=== PATIENT | female | born 1960 | race Caucasian/White ===

== ENCOUNTER 2022-01-14 09:25 | Emergency (ER) | payer MEDICAID ==
[2022-01-14] MEDS ORDERED: Sodium Chloride 0.9% 500 ML IV ONE ×2 (10:16→11:59)
[2022-01-14] MEDS ORDERED: diphenhydrAMINE 50 MG/ML SDV IVPUSH ONE (10:45)
[2022-01-14] MEDS ORDERED: fentaNYL 100 MCG/2 ML SDV IVPUSH ONE ×2 (11:05→12:14)
[2022-01-14] MEDS ORDERED: Ondansetron 4 MG/2 ML SDV IVPUSH ONE (12:12)
[2022-01-14] MEDS ORDERED: HYDROmorphone 0.5 MG/0.5 ML Syringe IVPUSH ONE (13:04)
== END 2022-01-14 13:34 | disposition home or self-care (01) ==
LOC: JP.ED 09:25
DX: I95.9 Hypotension, unspecified (principal); G44.52 New daily persistent headache (NDPH); R00.1 Bradycardia, unspecified; D50.9 Iron deficiency anemia, unspecified; Z88.5 Allergy status to narcotic agent; Z88.8 Allergy status to other drugs, medicaments and biological substances; Z79.899 Other long term (current) drug therapy; Z98.84 Bariatric surgery status
CPT/HCPCS: 36415; 70551; 80048; 80076; 81001; 82607; 82746; 84443; 85025; 93005; 96374; 96375; 96376; 99284; J1170; J1200; J2405; J3010; J7040

== ENCOUNTER 2022-01-20 11:38 | Emergency (ER) | payer MEDICAID ==
[2022-01-20] MEDS ORDERED: LORazepam 0.5 MG Tab PO ONE ×2 (12:39→13:53)
[2022-01-20 13:14] LABS: CORONAVIRUS COVID-19 NAA NEGATIVE (NEGATIVE)
== END 2022-01-20 14:19 | disposition home or self-care (01) ==
LOC: JP.ED 11:38
DX: F41.9 Anxiety disorder, unspecified (principal); R06.09 Other forms of dyspnea; R79.0 Abnormal level of blood mineral; J44.9 Chronic obstructive pulmonary disease, unspecified; K21.9 Gastro-esophageal reflux disease without esophagitis; I10 Essential (primary) hypertension; Z88.5 Allergy status to narcotic agent; Z88.8 Allergy status to other drugs, medicaments and biological substances; Z86.16 Personal history of COVID-19; Z79.899 Other long term (current) drug therapy; Z72.0 Tobacco use; Z20.822 Contact with and (suspected) exposure to COVID-19
CPT/HCPCS: 0241U; 36415; 71046; 83880; 84484; 85025; 85379; 93005; 93010; 99283; 99285; A9270

== ENCOUNTER 2022-07-06 10:03 | Inpatient (IN) | payer MEDICAID ==
[2022-07-06] MEDS ORDERED: Sodium Chloride 0.9% 10 ML Syringe FLUSH PRN (10:38)
[2022-07-06] MEDS ORDERED: HYDROmorphone 0.5 MG/0.5 ML Syringe IVPUSH ONE ×2 (10:38→13:41)
[2022-07-06] MEDS ORDERED: Ondansetron 4 MG/2 ML SDV IVPUSH ONE (10:47)
[2022-07-06] MEDS ORDERED: diphenhydrAMINE 50 MG/ML SDV IVPUSH ONE (10:47)
[2022-07-06] MEDS ORDERED: Sodium Chloride 0.9% 500 ML IV ONE (10:47)
[2022-07-06] MEDS ORDERED: Pantoprazole 40 MG Vial IVPUSH ONE (10:49)
[2022-07-06 11:23] LABS: ESTIMATED GFR 52 mL/min (>60)
[2022-07-06] MEDS ORDERED: Sodium Chloride 0.9% 10 ML Syringe FLUSH ONE (11:29)
[2022-07-06] MEDS ORDERED: Iopamidol 612 MG/ML 100 ML Bottle IV SCH (11:30)
[2022-07-06] MEDS: Sodium Chloride 0.9% 50 ML IV ONE (11:36)
[2022-07-06] MEDS ORDERED: LORazepam 2 MG/ML SDV IVPUSH ONE (12:43)
[2022-07-06] MEDS ORDERED: Dextrose 5%-Lactated Ringers 1,000 ML IV SCH ×2 (12:45→14:54)
[2022-07-06] MEDS ORDERED: Acetaminophen 325 MG Tab PO PRN (14:54)
[2022-07-06] MEDS ORDERED: Promethazine 6.25 MG in Sodium Chloride 0.9% 50 ML IV PRN (14:54)
[2022-07-06] MEDS ORDERED: Ondansetron 4 MG/2 ML SDV IV PRN (14:54)
[2022-07-06] MEDS ORDERED: Magnesium Hydroxide 400 MG/5 ML Susp 30 ML Cup PO PRN (14:54)
[2022-07-06] MEDS ORDERED: oxyCODONE 5 MG Tab PO PRN (14:54)
[2022-07-06] MEDS ORDERED: LORazepam 2 MG/ML SDV IVPUSH PRN (14:54)
[2022-07-06] MEDS ORDERED: HYDROmorphone 1 MG/ML Syringe IVPUSH PRN (14:54)
[2022-07-06] MEDS ORDERED: traZODone 50 MG Tab PO PRN (15:26)
[2022-07-06] MEDS: LORazepam 0.5 MG Tab PO PRN (15:55)
[2022-07-06] MEDS: Escitalopram 20 MG Tab PO SCH (16:16)
[2022-07-06] MEDS ORDERED: Pantoprazole 40 MG Tab.CR PO SCH (16:30)
[2022-07-06] MEDS ORDERED: Naloxone 0.4 MG/ML SDV IV PRN (17:00)
[2022-07-06] MEDS ORDERED: Ondansetron 4 MG/2 ML SDV IVPUSH PRN (17:10)
[2022-07-06] MEDS: busPIRone 10 MG Tab PO SCH ×2 (17:28→20:57)
[2022-07-06] MEDS: Gabapentin 300 MG Cap PO SCH ×2 (17:28→20:57)
[2022-07-06] MEDS: HYDROmorphone/Normal Saline 6 MG/30 ML PCA Vial IV PRN (18:02)
[2022-07-06] MEDS: Ondansetron 4 MG Tab.DIS PO PRN (18:03)
[2022-07-06] MEDS ORDERED: Escitalopram 10 MG Tab PO SCH (21:00)
[2022-07-07] MEDS: Dextrose 5%-Lactated Ringers 1,000 ML IV SCH ×2 (02:17→12:56)
[2022-07-07] MEDS: HYDROmorphone/Normal Saline 6 MG/30 ML PCA Vial IV PRN ×2 (02:48→18:51)
[2022-07-07] MEDS: Ondansetron 4 MG Tab.DIS PO PRN (04:26)
[2022-07-07 05:15] LABS: ESTIMATED GFR 43 mL/min (>60)
[2022-07-07] MEDS ORDERED: Atenolol 25 MG Tab PO ONE (06:00)
[2022-07-07] MEDS: LORazepam 0.5 MG Tab PO PRN (07:37)
[2022-07-07] MEDS: busPIRone 10 MG Tab PO SCH ×3 (08:28→20:34)
[2022-07-07] MEDS: amLODIPine 5 MG Tab PO SCH (08:28)
[2022-07-07] MEDS: Estradiol 0.5 MG Tab PO SCH (08:28)
[2022-07-07] MEDS: Gabapentin 300 MG Cap PO SCH ×3 (08:29→20:34)
[2022-07-07] MEDS: Pantoprazole 40 MG Vial IV SCH (08:31)
[2022-07-07] MEDS ORDERED: Oxybutynin 5 MG Tab PO SCH (09:00)
[2022-07-07] MEDS ORDERED: buPROPion 150 MG Tab.ER PO SCH (09:00)
[2022-07-07] MEDS ORDERED: Multivitamins with Iron/Calcium/Folic Acid/Minerals Tab PO SCH (09:00)
[2022-07-07] MEDS ORDERED: Ropivacaine 38 ML, dexAMETHasone 8 MG, EPINEPHrine 0.4 MG, Sodium Chloride 0.9% 39.6 ML NERVRT SCH ×4 (10:00)
[2022-07-07] MEDS ORDERED: Ketamine 17 MG in Sodium Chloride 0.9% 19.83 ML IV SCH (10:00)
[2022-07-07] MEDS ORDERED: cefOXitin 2 GM in Sodium Chloride 0.9% 50 ML IV ONE ×2 (10:00→13:00)
[2022-07-07] MEDS ORDERED: Ketamine 500 MG/5 ML MDV IV SCH (10:00)
[2022-07-07] MEDS ORDERED: Rocuronium 50 MG/5 ML Vial ONE (11:03)
[2022-07-07] MEDS ORDERED: Neostigmine Methylsulfate 1 MG/ML 5 ML Syringe ONE (11:03)
[2022-07-07] MEDS ORDERED: fentaNYL 250 MCG/5 ML SDV ONE (11:03)
[2022-07-07] MEDS ORDERED: Glycopyrrolate 0.2 MG/ML 5 ML MDV ONE (11:03)
[2022-07-07] MEDS ORDERED: Succinylcholine 200 MG/10 ML MDV ONE (11:03)
[2022-07-07] MEDS ORDERED: Dexamethasone 4 MG/ML SDV ONE (11:03)
[2022-07-07] MEDS ORDERED: Ondansetron 4 MG/2 ML SDV ONE (11:03)
[2022-07-07] MEDS ORDERED: Propofol 200 MG/20 ML SDV ONE (11:03)
[2022-07-07] MEDS ORDERED: Meropenem 500 MG SDV ONE (14:12)
[2022-07-07] MEDS ORDERED: Bupivacaine 0.5% 30 ML SDV ONE (14:12)
[2022-07-07] MEDS ORDERED: Lidocaine 1% with EPINEPHrine 1:100,000 50 ML MDV ONE (14:12)
[2022-07-07] MEDS ORDERED: Sodium Chloride 0.9% 500 ML ONE (15:02)
[2022-07-07] MEDS ORDERED: Linezolid 600 MG/300 ML Premix Bag IRR ONE (15:32)
[2022-07-07] MEDS ORDERED: Escitalopram 10 MG Tab PO SCH (16:00)
[2022-07-07] MEDS ORDERED: LORazepam 2 MG/ML SDV IVPUSH PRN (17:00)
[2022-07-07] MEDS ORDERED: Cyclobenzaprine 10 MG Tab PO PRN (17:01)
[2022-07-07] MEDS: MVI, Adult with Vitamin K 10 ML, Thiamine 200 MG, Zinc/Copper/Manganese/Selenium 1 ML i... IV SCH ×4 (17:49)
[2022-07-07] MEDS ORDERED: hydrOXYzine HCL 100 MG/2 ML SDV IM PRN (18:00)
[2022-07-07] MEDS ORDERED: Metoclopramide 10 MG/2 ML SDV IVPUSH PRN (18:00)
[2022-07-07] MEDS ORDERED: Acetaminophen 500 MG Tab PO PRN (18:00)
[2022-07-07] MEDS ORDERED: Labetalol 20 MG/4 ML Syringe IVPUSH PRN (18:00)
[2022-07-07] MEDS ORDERED: diphenhydrAMINE 50 MG/ML SDV IVPUSH PRN (18:00)
[2022-07-07] MEDS: Acetaminophen 500 MG Tab PO SCH (18:03)
[2022-07-07] MEDS: cefOXitin 2 GM in Sodium Chloride 0.9% 50 ML IV SCH (20:29)
[2022-07-07] MEDS: Heparin Sodium 5,000 Units/ML Vial SUBCUT SCH (20:31)
[2022-07-07] MEDS: traZODone 50 MG Tab PO SCH (20:34)
[2022-07-08] MEDS: Dextrose 5%-Lactated Ringers 1,000 ML IV SCH ×2 (00:59→07:43)
[2022-07-08] MEDS: cefOXitin 2 GM in Sodium Chloride 0.9% 50 ML IV SCH ×4 (01:05→19:09)
[2022-07-08] MEDS: Acetaminophen 500 MG Tab PO SCH ×3 (01:06→17:18)
[2022-07-08] MEDS ORDERED: Iopamidol 612 MG/ML 50 ML SDV PO STA (01:37)
[2022-07-08 05:22] LABS: ESTIMATED GFR 52 mL/min (>60)
[2022-07-08] MEDS: Heparin Sodium 5,000 Units/ML Vial SUBCUT SCH ×2 (07:40→19:12)
[2022-07-08] MEDS ORDERED: Dextrose 5%-Lactated Ringers 1,000 ML IV SCH (08:00)
[2022-07-08] MEDS: busPIRone 10 MG Tab PO SCH ×3 (08:57→20:07)
[2022-07-08] MEDS: Escitalopram 20 MG Tab PO SCH (08:57)
[2022-07-08] MEDS: Gabapentin 300 MG Cap PO SCH ×3 (08:58→20:04)
[2022-07-08] MEDS: Pantoprazole 40 MG Vial IV SCH (08:58)
[2022-07-08] MEDS: Oxybutynin 5 MG Tab PO SCH ×2 (08:58→20:07)
[2022-07-08] MEDS: Bisacodyl 5 MG Tab PO SCH ×2 (08:59→20:06)
[2022-07-08] MEDS: Celecoxib 200 MG Cap PO SCH ×2 (08:59→20:06)
[2022-07-08] MEDS: Estradiol 0.5 MG Tab PO SCH (08:59)
[2022-07-08] MEDS: Docusate Sodium 100 MG Cap PO SCH ×3 (09:00→20:06)
[2022-07-08] MEDS ORDERED: Sodium Ferric Gluconate Cmplex 250 MG in Sodium Chloride 0.9% 100 ML IV ONE (09:00)
[2022-07-08] MEDS: Atenolol 25 MG Tab PO SCH (09:01)
[2022-07-08] MEDS: amLODIPine 5 MG Tab PO SCH (09:01)
[2022-07-08] MEDS: Magnesium Sulfate/Water 2 GM in Premix Bag 1 BAG IV SCH ×3 (10:13→20:01)
[2022-07-08] MEDS ORDERED: Sodium Ferric Gluconate Cmplex 250 MG in Sodium Chloride 0.9% 100 ML IV SCH (11:00)
[2022-07-08] MEDS ORDERED: LORazepam 0.5 MG Tab PO PRN (14:54)
[2022-07-08] MEDS: HYDROmorphone/Normal Saline 6 MG/30 ML PCA Vial IV PRN (15:39)
[2022-07-08] MEDS: MVI, Adult with Vitamin K 10 ML, Thiamine 200 MG, Zinc/Copper/Manganese/Selenium 1 ML i... IV SCH ×4 (17:17)
[2022-07-08] MEDS: traZODone 50 MG Tab PO SCH (20:07)
[2022-07-08] MEDS ORDERED: Escitalopram 10 MG Tab PO SCH (21:00)
[2022-07-08] MEDS: oxyCODONE 5 MG Tab PO PRN (23:03)
[2022-07-09] MEDS: Acetaminophen 500 MG Tab PO SCH ×2 (02:20→09:13)
[2022-07-09] MEDS: oxyCODONE 5 MG Tab PO PRN (07:06)
[2022-07-09] MEDS: amLODIPine 5 MG Tab PO SCH (08:08)
[2022-07-09] MEDS: Estradiol 0.5 MG Tab PO SCH (08:08)
[2022-07-09] MEDS: Oxybutynin 5 MG Tab PO SCH (08:08)
[2022-07-09] MEDS: Docusate Sodium 100 MG Cap PO SCH (08:08)
[2022-07-09] MEDS: Atenolol 25 MG Tab PO SCH (08:09)
[2022-07-09] MEDS: Celecoxib 200 MG Cap PO SCH (08:09)
[2022-07-09] MEDS: Escitalopram 20 MG Tab PO SCH (08:09)
[2022-07-09] MEDS: Gabapentin 300 MG Cap PO SCH (08:09)
[2022-07-09] MEDS: busPIRone 10 MG Tab PO SCH (08:09)
[2022-07-09] MEDS: Heparin Sodium 5,000 Units/ML Vial SUBCUT SCH (08:10)
[2022-07-09] MEDS: Bisacodyl 5 MG Tab PO SCH (08:10)
[2022-07-09] MEDS ORDERED: Pantoprazole 40 MG Tab.CR PO SCH (08:38)
[2022-07-09] MEDS ORDERED: Cyanocobalamin (Vitamin B12) 1,000 MCG/ML SDV IM ONE (09:00)
== END 2022-07-09 10:46 | disposition home or self-care (01) | DRG 326 ==
LOC: JP.ED 10:03 → JP.ICU 13:41 → OBSVTOIN 07-07 16:00 → JP.ICU 07-08 10:48
PROVIDERS: ADMIT Surgery; ATTEND Physician Assistant Medical
PROC: 0DS80ZZ Reposition Small Intestine, Open Approach (ICD-10-PCS; principal; 2022-07-07)
PROC: 0D160ZA Bypass Stomach to Jejunum, Open Approach (ICD-10-PCS; 2022-07-07)
PROC: 0DB80ZZ Excision of Small Intestine, Open Approach (ICD-10-PCS; 2022-07-07)
PROC: 0DQ80ZZ Repair Small Intestine, Open Approach (ICD-10-PCS; 2022-07-07)
PROC: 3E0M05Z Introduction of Adhesion Barrier into Peritoneal Cavity, Open Approach (ICD-10-PCS; 2022-07-07)
DX: K95.89 Other complications of other bariatric procedure (principal); K56.2 Volvulus; K56.600 Partial intestinal obstruction, unspecified as to cause; Z98.84 Bariatric surgery status; E61.1 Iron deficiency; G89.4 Chronic pain syndrome; J43.9 Emphysema, unspecified; I10 Essential (primary) hypertension; K21.9 Gastro-esophageal reflux disease without esophagitis; R32 Unspecified urinary incontinence; G43.909 Migraine, unspecified, not intractable, without status migrainosus; Z96.659 Presence of unspecified artificial knee joint; F32.A Depression, unspecified; D64.9 Anemia, unspecified; Z20.822 Contact with and (suspected) exposure to COVID-19; F41.1 Generalized anxiety disorder; Z86.16 Personal history of COVID-19; Z86.19 Personal history of other infectious and parasitic diseases; Z90.89 Acquired absence of other organs; Z90.49 Acquired absence of other specified parts of digestive tract; Z90.710 Acquired absence of both cervix and uterus; Z87.891 Personal history of nicotine dependence; Z88.8 Allergy status to other drugs, medicaments and biological substances; Z88.5 Allergy status to narcotic agent; Z79.899 Other long term (current) drug therapy
CPT/HCPCS: 36415; 70491; 70491-26; 74177; 74177-26; 74240; 74240-26; 80053; 81001; 82306; 82607; 82728; 82746; 83605; 83735; 83880; 84100; 84425; 84590; 85025; 85027; 86140; 86850; 86900; 86901; 86920; 86922; 93005; 93010; 96361; 96365; 96366; 96372; 96374; 96375; 96376; 99219; 99283; 99285-25; A9270-GY; C9113; G0378; J0171; J0330; J0694; J1100; J1170; J1200; J1644; J2020; J2060; J2185; J2405; J2704; J2710; J2795; J2916; J3010; J3410; J3411; J3420; J3475; J3490; J7040; J7121; Q0162; Q9967; U0002